=== PATIENT | female | born 1970 | race Two or more races ===

== ENCOUNTER 2024-09-25 08:12 | Outpatient (CLI) | payer OTHER | END 2024-09-25 08:24 | disposition home or self-care (01) | LOC: MAMO-SONO 08:12 | PROVIDERS: ATTEND Family Medicine | DX: M54.2 Cervicalgia (principal); N60.29 Fibroadenosis of unspecified breast; N63.0 Unspecified lump in unspecified breast; Z12.31 Encounter for screening mammogram for malignant neoplasm of breast ==